=== PATIENT | female | born 2000 | race Caucasian/White ===

== ENCOUNTER 2018-11-08 10:45 | Emergency (ER) | payer OTHER ==
[2018-11-08 10:55] VITALS: BP 131/67
--- NOTE | 2018-11-08 12:25 | ED Physician Documentation ---
<Ava Dover - Last Filed: 11/09/18 19:21> PD HPI LOWER EXT INJURY - Stated complaint Stated Complaint: R BUMP ON FOOT - Chief complaint Chief Complaint: Wound PD PAST MEDICAL HISTORY - Present Medications Home Medications: Ambulatory Orders Medication Instructions Recorded Confirmed No Known Home Medications 11/08/18 11/08/18 - Allergies Allergies/Adverse Reactions: Allergies Allergy/AdvReac Type Severity Reaction Status Date / Time No Known Drug Allergies Allergy Verified 11/08/18 10:55 Results - Vitals Vitals: Oxygen O2 Source Room air PD MEDICAL DECISION MAKING - ED course ED course: Patient here in the ER requesting for a work note. She was not registered To be seen. I did not see this patient. Departure - Departure Disposition: Home, Self Care Clinical Impression: Ganglion cyst Condition: Stable Instructions: ED Cyst Ganglion Follow-Up: EMMETT OBRIEN [Physician No Access] - Comments: You can use ibuprofen, up to 600 mg 3 times daily for anti-inflammatory effect. Try to minimize constriction from your boots at the area of the ganglion cyst. Follow-up with your primary physician within 1-2 weeks. Call to schedule an appointment. Return to the emergency department if increasing pain or swelling, any sign of infection, or otherwise worsening symptoms. Forms: Activity restrictions Discharge Date/Time: 11/08/18 12:27 <Octaviano Lizama - Last Filed: 11/11/18 09:06> PD HPI LOWER EXT INJURY - History obtained from History obtained from: Patient - History of Present Illness PD HPI LOW EXT INJURY LOCATION: Right, Foot Associated symptoms: Swelling Similar symptoms before: Has not had sx before - Additional information Additional information: The patient is a 18-year-old female who presents with a "bump" on her right foot. It has been bothering her for the last 2 days, particularly when wearing her boots. She denies any traumatic injury. She denies history of similar symptoms in the past. Review of Systems Constitutional: denies: Fever Skin: denies: Rash Musculoskeletal: reports: Extremity pain (Right foot.) Neurologic: denies: Focal weakness, Numbness PD PAST MEDICAL HISTORY - Past Medical History Past Medical History: No Neuro: None Endocrine/Autoimmune: None - Past Surgical History Past Surgical History: Yes - Social History Does the pt smoke?: Yes Smoking Status: Current every day smoker Does the pt drink ETOH?: No - Immunizations Immunizations are current?: Yes PD ED PE NORMAL - Vitals Vital signs reviewed: Yes (Borderline systolic hypertension initially.) - General General: Alert and oriented X 3, Well developed/nourished - HEENT HEENT: Atraumatic - Respiratory Respiratory: No respiratory distress - Derm Derm: No rash - Extremities Extremities: No edema, No calf tenderness / cord, Other (There is a 1 cm diameter swelling on the dorsum of the right ankle. It is non-mobile and fluctuant. It is mildly tender to palpation. There is no erythema. Distal neurovascular is intact.) - Neuro Neuro: Alert and oriented X 3, No motor deficit, No sensory deficit Results - Vitals Vitals: Oxygen O2 Source Room air PD MEDICAL DECISION MAKING - ED course Complexity details: considered differential, d/w patient ED course: The patient's presentation is most consistent with ganglion cyst. There is no clinical evidence to suggest infectious etiology bony abnormality. I discussed with her symptomatic treatment, outpatient follow-up, as well as potentially worrisome signs or symptoms that should prompt reevaluation. Patient here in the ER requesting for a work note. She was not registered To be seen. I did not see this patient.
== END 2018-11-08 12:27 | disposition home or self-care (01) ==
LOC: ED 10:45
DX: M67.471 Ganglion, right ankle and foot (principal); F17.200 Nicotine dependence, unspecified, uncomplicated
CPT/HCPCS: 99282; 99283

== ENCOUNTER 2019-02-19 19:44 | Emergency (ER) | payer OTHER ==
--- NOTE | 2019-02-19 20:07 | ED Physician Documentation ---
PD HPI ABD PAIN - Stated complaint Stated Complaint: FEM BLEEDING/8 WEEKS PREG - Chief complaint Chief Complaint: Abd Pain - History obtained from History obtained from: Patient - History of Present Illness Timing - onset: Other ( at 8 weeks by days started having mild lower abdominal cramping in the midline today and had blood with urination she thinks in her urine.) Review of Systems Constitutional: denies: Fever, Chills GI: denies: Nausea, Vomiting, Diarrhea : denies: Dysuria, Frequency PD PAST MEDICAL HISTORY - Past Medical History Neuro: None Endocrine/Autoimmune: None - Past Surgical History Past Surgical History: Yes - Present Medications Home Medications: Ambulatory Orders Medication Instructions Recorded Confirmed No Known Home Medications 11/08/18 11/08/18 - Allergies Allergies/Adverse Reactions: Allergies Allergy/AdvReac Type Severity Reaction Status Date / Time No Known Drug Allergies Allergy Verified 11/08/18 10:55 - Social History Does the pt smoke?: Yes Smoking Status: Current every day smoker Does the pt drink ETOH?: No - Immunizations Immunizations are current?: Yes PD ED PE NORMAL - Vitals Vital signs reviewed: Yes - General General: Alert and oriented X 3, No acute distress - Abdomen Abdomen: Normal bowel sounds, Soft, Non tender - Female Female : Other (I am unable to identify an intrauterine on bedside u ltrasound) - Back Back: No CVA TTP, No spinal TTP - Extremities Extremities: No edema, No calf tenderness / cord - Neuro Neuro: Alert and oriented X 3, Normal speech Results - Vitals Vitals: Vital Signs - 24 hr 02/19/19 02/19/19 19:49 21:32 Temperature 37.0 C 36.2 C L Heart Rate 82 71 Respiratory 16 14 Rate Blood Pressure 126/69 118/78 O2 Saturation 99 99 Oxygen O2 Source Room air - Labs Labs: Laboratory Tests 02/19/19 02/19/19 02/19/19 20:20 20:20 20:20 WBC 7.7 RBC 4.28 Hgb 13.0 Hct 38.2 MCV 89.1 MCH 30.3 MCHC 34.1 RDW 13.2 Plt Count 174 MPV 10.1 Neut # (Auto) 5.4 Lymph # (Auto) 1.6 [place] # (Auto) 0.5 Eos # (Auto) 0.1 Baso # (Auto) 0.0 Absolute Nucleated RBC 0.00 Nucleated RBC % 0.0 Sodium 133 L Potassium 3.4 L Chloride 104 Carbon Dioxide 26 Anion Gap 3.0 L BUN 10 Creatinine 0.7 Estimated GFR (MDRD) 106 Glucose 92 Calcium 8.7 Total Bilirubin 0.6 AST 17 ALT 13 Alkaline Phosphatase 53 Total Protein 7.4 Albumin 4.3 Globulin 3.1 Albumin/Globulin Ratio 1.4 Lipase 36 HCG, Quant Urine Color Urine Clarity Urine pH Ur Specific [place] Urine Protein Urine Glucose (UA) Urine Ketones Urine Occult Blood Urine Nitrite Urine Bilirubin Urine Urobilinogen Ur Leukocyte Esterase Urine RBC Urine WBC Ur Squamous Epith Cells Urine Bacteria Ur Microscopic Review Urine Culture Comments Blood Type A POSITIVE 02/19/19 02/19/19 20:20 21:40 WBC RBC Hgb Hct MCV MCH MCHC RDW Plt Count MPV Neut # (Auto) Lymph # (Auto) [place] # (Auto) Eos # (Auto) Baso # (Auto) Absolute Nucleated RBC Nucleated RBC % Sodium Potassium Chloride Carbon Dioxide Anion Gap BUN Creatinine Estimated GFR (MDRD) Glucose Calcium Total Bilirubin AST ALT Alkaline Phosphatase Total Protein Albumin Globulin Albumin/Globulin Ratio Lipase HCG, Quant 4616.00 Urine Color YELLOW Urine Clarity HAZY Urine pH 6.0 Ur Specific [place] <=1.005 Urine Protein NEGATIVE Urine Glucose (UA) NEGATIVE Urine Ketones NEGATIVE Urine Occult Blood MODERATE H Urine Nitrite NEGATIVE Urine Bilirubin NEGATIVE Urine Urobilinogen 0.2 (NORMAL) Ur Leukocyte Esterase NEGATIVE Urine RBC 0-5 Urine WBC 0-3 Ur Squamous Epith Cells FEW Squamous Urine Bacteria None Seen Ur Microscopic Review INDICATED Urine Culture Comments NOT INDICATED Blood Type - Rads (name of study) Ob Sono Radiology: Final report received (6w1d IUP with slow HR and small perigest hemorrhage) PD MEDICAL DECISION MAKING - ED course ED course: 19-year-old woman G1 presents with threatened . Diagnostics here are reassuring with the exception of bradycardia which was discussed and follow-up advised. Departure - Departure Disposition: 01 Home, Self Care Clinical Impression: Threatened Condition: Good Record reviewed to determine appropriate education?: Yes Comments: As discussed, your ultrasound demonstrates an intrauterine at 6 weeks and 1 day gestation. The heart rate is slow, this should be rechecked with your OB in 1 week but nothing to worry about right now. Return for new or worsening symptoms.
[2019-02-19 20:28] LABS: BASOPHILS % (AUTO) 0.5 %; EOSINOPHILS # (AUTO) 0.1 10^3/uL (0.0-0.7); EOSINOPHILS % (AUTO) 1.5 %; LYMPHOCYTES # (AUTO) 1.6 10^3/uL (1.5-3.5); LYMPHOCYTES % (AUTO) 20.9 %; MEAN CORPUSCULAR HEMOGLOBIN 30.3 pg (27.0-31.0); MEAN CORPUSCULAR HGB CONC 34.1 g/dL (32.0-36.0); MEAN CORPUSCULAR VOLUME 89.1 fL (81.0-99.0); MEAN PLATELET VOLUME 10.1 fL (7.9-10.8); MONOCYTES # (AUTO) 0.5 10^3/uL (0.0-1.0); MONOCYTES % (AUTO) 6.2 %; NEUTROPHILS # (AUTO) 5.4 10^3/uL (1.5-6.6); NEUTROPHILS % (AUTO) 70.9 %; PLT - PLATELET COUNT 174 10^3/uL (130-450); RED BLOOD COUNT 4.28 10^6/uL (4.20-5.40); RED CELL DISTRIBUTION WIDTH 13.2 % (12.0-15.0); WHITE BLOOD COUNT 7.7 x10^3/uL (4.8-10.8)
[2019-02-19 20:44] LABS: ALBUMIN 4.3 g/dL (3.2-5.5); ALBUMIN/GLOBULIN RATIO 1.4 (1.0-2.2); BILIRUBIN,TOTAL 0.6 mg/dL (0.2-1.0); CALCIUM 8.7 mg/dL (8.5-10.3); CREATININE 0.7 mg/dL (0.4-1.0); TOTAL PROTEIN 7.4 g/dL (6.7-8.2)
[2019-02-19 21:54] LABS: BILIRUBIN,URINE NEGATIVE (NEGATIVE); GLUCOSE, URINE (UA) NEGATIVE (NEGATIVE); KETONES,URINE (UA) NEGATIVE (NEGATIVE); LEUKOCYTE ESTERASE, URINE NEGATIVE (NEGATIVE); NITRITE,URINE NEGATIVE (NEGATIVE); OCCULT BLOOD,URINE MODERATE (NEGATIVE); PROTEIN,URINE NEGATIVE (NEGATIVE); UROBILINOGEN,URINE 0.2 (NORMAL) E.U./dL (NORMAL)
--- NOTE | 2019-02-19 22:01 | Ultrasound Report ---
Reason: Vag Blled, 8w by dates Procedure Date: 02/19/2019 Accession Number: [id number] / [id number] Procedure: US - OB First Trimester CPT Code: FULL RESULT: EXAM: FIRST TRIMESTER OBSTETRIC ULTRASOUND (Less than 11 weeks) EXAM DATE: 02/19/2019 09:26 PM. CLINICAL HISTORY: Vaginal bleeding. . LMP: 01/02/2019. COMPARISONS: None. TECHNIQUE: Transabdominal and transvaginal ultrasound examination with static image documentation. CLINICAL DATES: EGA 6 weeks 6 days with JULIO 10/09/2019 based on LMP. ASSESSMENT: Gestational Sac: Single intrauterine. Mean gestational sac diameter: 11.2 mm = 5 weeks 1 day. Embryo: CRL (crown-rump length) 4.5 mm = 6 weeks 1 day. Cardiac activity: 76 beats per minute. Yolk sac: 3.6 mm. Amniotic fluid: Not accurately assessed at this gestational age. Early placenta: Not visible at this gestational age. Other: There is a perigestational fluid collection measuring 1.3 x 1.3 x 0.4 cm and volume of 0.4 cc.. MATERNAL STRUCTURES: Uterus: Anteverted/Retroverted. Unremarkable. Cervix: Closed. Right Ovary/Adnexa: The ovary measures 2.4 x 1.4 x 1.7 cm, volume 5.7 cc. Unremarkable. Left Ovary/Adnexa: The ovary measures 2.0 x 2.2 x 2.4 cm, volume 5.5 cc. There is a complex cyst, probable corpus luteum measuring 0.8 x 1.8 x 1.4 cm. Free Fluid: None. Other: None. IMPRESSION: 1. Single viable intrauterine at EGA 6 weeks 1 day with JULIO 10/14/2019 based on crown-rump length, compared with gestational age 6 weeks 6 days based on LMP. 2. bradycardia, a finding associated with adverse outcome, consider sonographic follow-up. 3. Small perigestational hemorrhage. RADIA
[2019-02-19 22:04] LABS: CLARITY,URINE HAZY (CLEAR)
[2019-02-19 22:05] LABS: BACTERIA,URINE None Seen /HPF (None Seen); RBC,URINE 0-5 /HPF (0-5); SQUAMOUS EPITHELIAL CELL,UR FEW Squamous (<= Few)
[2019-02-19 22:18] VITALS: BP 121/78
== END 2019-02-19 22:22 | disposition home or self-care (01) ==
LOC: ED 19:44
DX: O20.0 Threatened abortion (principal); O99.331 Smoking (tobacco) complicating pregnancy, first trimester; Z3A.01 Less than 8 weeks gestation of pregnancy
CPT/HCPCS: 36415; 76801; 76817; 80053; 81001; 81003; 83690; 84702; 84703; 85025; 86900; 86901; 87086; 99283

== ENCOUNTER 2019-03-05 09:44 | Emergency (ER) | payer OTHER ==
[2019-03-05 10:22] LABS: MUDS CUTOFF CONCENTRATIONS CUTOFF CONC BELOW:
[2019-03-05 10:26] LABS: BILIRUBIN,URINE NEGATIVE (NEGATIVE); GLUCOSE, URINE (UA) NEGATIVE (NEGATIVE); KETONES,URINE (UA) NEGATIVE (NEGATIVE); LEUKOCYTE ESTERASE, URINE NEGATIVE (NEGATIVE); NITRITE,URINE POSITIVE (NEGATIVE); OCCULT BLOOD,URINE NEGATIVE (NEGATIVE); PH,URINE 6.5 PH (5.0-7.5); PROTEIN,URINE NEGATIVE (NEGATIVE); UROBILINOGEN,URINE 0.2 (NORMAL) E.U./dL (NORMAL)
[2019-03-05 10:26] LABS: BASOPHILS # (AUTO) 0.1 10^3/uL (0.0-0.1); BASOPHILS % (AUTO) 1.3 %; EOSINOPHILS # (AUTO) 0.1 10^3/uL (0.0-0.7); HGB - HEMOGLOBIN 13.4 g/dL (12.0-16.0); LYMPHOCYTES # (AUTO) 1.5 10^3/uL (1.5-3.5); LYMPHOCYTES % (AUTO) 24.4 %; MEAN CORPUSCULAR HEMOGLOBIN 30.1 pg (27.0-31.0); MEAN CORPUSCULAR HGB CONC 33.5 g/dL (32.0-36.0); MEAN CORPUSCULAR VOLUME 89.8 fL (81.0-99.0); MEAN PLATELET VOLUME 10.1 fL (7.9-10.8); MONOCYTES # (AUTO) 0.4 10^3/uL (0.0-1.0); MONOCYTES % (AUTO) 5.9 %; NEUTROPHILS % (AUTO) 66.4 %; PLT - PLATELET COUNT 184 10^3/uL (130-450); RED BLOOD COUNT 4.46 10^6/uL (4.20-5.40); RED CELL DISTRIBUTION WIDTH 13.6 % (12.0-15.0)
[2019-03-05 10:30] LABS: CLARITY,URINE HAZY (CLEAR); HCG UR QUAL NEGATIVE
[2019-03-05 10:38] LABS: AMPHETAMINE SCREEN,URINE NEGATIVE (NEGATIVE); BENZODIAZEPINES SCREEN, URINE NEGATIVE (NEGATIVE); COCAINE SCREEN URINE NEGATIVE (NEGATIVE); METHADONE SCREEN, URINE NEGATIVE (NEGATIVE); METHAMPHETAMINES SCREEN, URINE NEGATIVE (NEGATIVE); OPIATE SCREEN, URINE NEGATIVE (NEGATIVE); OXYCODONE SCREEN, URINE NEGATIVE (NEGATIVE); PROPOXYPHENE SCREEN, URINE NEGATIVE (NEGATIVE); TRICYCLIC ANTIDEPRESSANT,URINE NEGATIVE (NEGATIVE)
[2019-03-05 10:39] LABS: BACTERIA,URINE Moderate /HPF (None Seen); MUCUS,URINE Few Strands; RBC,URINE 0-5 /HPF (0-5); SQUAMOUS EPITHELIAL CELL,UR MOD Squamous (<= Few)
[2019-03-05 10:43] LABS: ACETAMINOPHEN < 10 ug/mL (10-30); ALBUMIN 4.5 g/dL (3.2-5.5); ALBUMIN/GLOBULIN RATIO 1.4 (1.0-2.2); ALKALINE PHOSPHATASE 56 IU/L (42-121); ALT ALANINE AMINOTRANSFERASE 10 IU/L (10-60); AST ASPARTATE AMINOTRANSFERASE 19 IU/L (10-42); BILIRUBIN,TOTAL 0.7 mg/dL (0.2-1.0); BUN - BLOOD UREA NITROGEN 10 mg/dL (6-20); CALCIUM 9.4 mg/dL (8.5-10.3); CARBON DIOXIDE - CO2 25 mmol/L (21-32); CHLORIDE 102 mmol/L (101-111); CREATININE 0.9 mg/dL (0.4-1.0); GFR - MDRD 79 (>89); GLUCOSE 97 mg/dL (70-100); LIPASE 29 U/L (22-51); SALICYLATE < 6.0 mg/dL; SODIUM 137 mmol/L (135-145); TOTAL PROTEIN 7.8 g/dL (6.7-8.2)
--- NOTE | 2019-03-05 14:56 | ED Physician Documentation ---
PD HPI MHE - Stated complaint Stated Complaint: MHE - Chief complaint Chief Complaint: MHE - History obtained from History obtained from: Patient - History of Present Illness Primary symptom: Depression - Additional information Additional information: The patient is a 19-year-old female who reports vague suicidal thoughts. She was diagnosed with one month ago, but suffered miscarriage 2 weeks ago. Her fianc has been on deployment for the past 3 weeks. She is currently in the process of from the [place]. She does not currently have any plan for self-harm, but is seeking help regarding her depression. She denies history of similar symptoms in the past. She does not use alcohol or other drugs. Review of Systems Constitutional: denies: Fever Nose: denies: Congestion Throat: denies: Sore throat Cardiac: denies: Chest pain / pressure Respiratory: denies: Dyspnea, Cough GI: denies: Abdominal Pain, Nausea, Vomiting : reports: Other (Miscarriage 2 weeks ago.). denies: Dysuria Skin: denies: Rash Musculoskeletal: denies: Back pain Neurologic: denies: Headache Psychiatric: reports: Depressed. denies: Delusions, Anxiety PD PAST MEDICAL HISTORY - Past Medical History Past Medical History: No Neuro: None Endocrine/Autoimmune: None - Past Surgical History Past Surgical History: Yes - Present Medications Home Medications: Ambulatory Orders Medication Instructions Recorded Confirmed No Known Home Medications 11/08/18 03/05/19 - Allergies Allergies/Adverse Reactions: Allergies Allergy/AdvReac Type Severity Reaction Status Date / Time No Known Drug Allergies Allergy Verified 03/05/19 09:53 - Social History Does the pt smoke?: Yes Smoking Status: Current every day smoker Does the pt drink ETOH?: Yes Does the pt have substance abuse?: No - Immunizations Immunizations are current?: Yes PD ED PE NORMAL - Vitals Vital signs reviewed: Yes (normal) - General General: Alert and oriented X 3, Well developed/nourished - HEENT HEENT: Atraumatic, EOMI, Pharynx benign - Neck Neck: Supple, no meningeal sign, No adenopathy, Thyroid normal - Cardiac Cardiac: RRR, No murmur - Respiratory Respiratory: No respiratory distress, Clear bilaterally - Abdomen Abdomen: Soft, Non tender - Back Back: No CVA TTP - Derm Derm: No rash - Extremities Extremities: No edema, No calf tenderness / cord - Neuro Neuro: Alert and oriented X 3, No motor deficit, No sensory deficit, Normal speech PD ED PE EXPANDED - Psych Psych: Depressed. No: Homicidal Results - Vitals Vitals: Vital Signs - 24 hr 03/05/19 15:01 Heart Rate 62 Respiratory 16 Rate Blood Pressure 109/68 O2 Saturation 100 Oxygen O2 Source Room air - Labs Labs: Laboratory Tests 03/05/19 03/05/19 03/05/19 10:05 10:05 10:17 WBC 6.0 RBC 4.46 Hgb 13.4 Hct 40.1 MCV 89.8 MCH 30.1 MCHC 33.5 RDW 13.6 Plt Count 184 MPV 10.1 Neut # (Auto) 4.0 Lymph # (Auto) 1.5 [place] # (Auto) 0.4 Eos # (Auto) 0.1 Baso # (Auto) 0.1 Absolute Nucleated RBC 0.00 Nucleated RBC % 0.1 Sodium Potassium Chloride Carbon Dioxide Anion Gap BUN Creatinine Estimated GFR (MDRD) Glucose Calcium Total Bilirubin AST ALT Alkaline Phosphatase Total Protein Albumin Globulin Albumin/Globulin Ratio Lipase TSH Urine Color YELLOW Urine Clarity HAZY Urine pH 6.5 Ur Specific [place] 1.020 Urine Protein NEGATIVE Urine Glucose (UA) NEGATIVE Urine Ketones NEGATIVE Urine Occult Blood NEGATIVE Urine Nitrite POSITIVE H Urine Bilirubin NEGATIVE Urine Urobilinogen 0.2 (NORMAL) Ur Leukocyte Esterase NEGATIVE Urine RBC 0-5 Urine WBC 6-10 H Ur Squamous Epith Cells MOD Squamous H Urine Bacteria Moderate H Urine Mucus Few Strands Ur Microscopic Review INDICATED Urine Culture Comments NOT INDICATED Urine HCG, Qual NEGATIVE Salicylates Urine Opiates Screen NEGATIVE Ur Oxycodone Screen NEGATIVE Urine Methadone Screen NEGATIVE Ur Propoxyphene Screen NEGATIVE Acetaminophen Ur Barbiturates Screen NEGATIVE Ur Tricyclics Screen NEGATIVE Ur Phencyclidine Scrn NEGATIVE Ur Amphetamine Screen NEGATIVE U Methamphetamines Scrn NEGATIVE U Benzodiazepines Scrn NEGATIVE Urine Cocaine Screen NEGATIVE U Cannabinoids Screen NEGATIVE Ethyl Alcohol 03/05/19 03/05/19 10:17 10:17 WBC RBC Hgb Hct MCV MCH MCHC RDW Plt Count MPV Neut # (Auto) Lymph # (Auto) [place] # (Auto) Eos # (Auto) Baso # (Auto) Absolute Nucleated RBC Nucleated RBC % Sodium 137 Potassium 4.0 Chloride 102 Carbon Dioxide 25 Anion Gap 10.0 BUN 10 Creatinine 0.9 Estimated GFR (MDRD) 79 L Glucose 97 Calcium 9.4 Total Bilirubin 0.7 AST 19 ALT 10 Alkaline Phosphatase 56 Total Protein 7.8 Albumin 4.5 Globulin 3.3 Albumin/Globulin Ratio 1.4 Lipase 29 TSH 0.68 Urine Color Urine Clarity Urine pH Ur Specific [place] Urine Protein Urine Glucose (UA) Urine Ketones Urine Occult Blood Urine Nitrite Urine Bilirubin Urine Urobilinogen Ur Leukocyte Esterase Urine RBC Urine WBC Ur Squamous Epith Cells Urine Bacteria Urine Mucus Ur Microscopic Review Urine Culture Comments Urine HCG, Qual Salicylates < 6.0 Urine Opiates Screen Ur Oxycodone Screen Urine Methadone Screen Ur Propoxyphene Screen Acetaminophen < 10 L Ur Barbiturates Screen Ur Tricyclics Screen Ur Phencyclidine Scrn Ur Amphetamine Screen U Methamphetamines Scrn U Benzodiazepines Scrn Urine Cocaine Screen U Cannabinoids Screen Ethyl Alcohol < 5.0 PD MEDICAL DECISION MAKING - ED course Complexity details: re-evaluated patient, considered differential, d/w patient, d/w travel service consultant ED course: The patient's presentation is most significant for situational depression. She described vague fleeting thoughts of suicide, but with no plan and no ongoing suicidal ideation. Alcohol or other drugs do not appear to be a factor in her presentation. I discussed her condition with the hospital medical assistant, who evaluated her in the emergency department. The GRIEF COUNSELLOR was able to provide the patient with outpatient resources for counseling. On reevaluation the patient reports being in a better mood at the time of discharge, and anticipates pursuing outpatient counseling. I discussed with her potentially worrisome signs or symptoms that should prompt reevaluation in the emergency department. Departure - Departure Disposition: 01 Home, Self Care Clinical Impression: Depression Qualifiers: Depression Type: unspecified Qualified Code(s): F32.9 - Major depressive disorder, single episode, unspecified Condition: Stable Instructions: ED Depression Follow-Up: [facility] [Provider Group] Comments: Follow-up for outpatient counseling as per the hospital medical assistant. Return to the emergency department if you develop increasing stress reaction, feeling out of control, or otherwise worsening symptoms. Discharge Date/Time: 03/05/19 15:01
[2019-03-05 15:02] VITALS: BP 109/68
== END 2019-03-05 15:01 | disposition home or self-care (01) ==
LOC: ED 09:44
DX: F32.9 Major depressive disorder, single episode, unspecified (principal); F17.200 Nicotine dependence, unspecified, uncomplicated
CPT/HCPCS: 36415; 80053; 80306; 80307; 80320; 80329; 81001; 81003; 81025; 83690; 84443; 85025; 87086; 99283

== ENCOUNTER 2020-04-07 14:48 | Outpatient (CLI) | payer MEDICAID | END 2020-04-07 23:59 | disposition home or self-care (01) | LOC: COV 14:48 | PROVIDERS: ATTEND Family Medicine | DX: R05 Cough (principal); R53.83 Other fatigue; R19.7 Diarrhea, unspecified; Z20.828 Contact with and (suspected) exposure to other viral communicable diseases | CPT/HCPCS: 81599 ==